=== PATIENT | female | born 1980 | race Caucasian/White ===

== ENCOUNTER → 2017-08-22 | Outpatient (CLI) | payer OTHER ==
[~2017-08-22] MED LIST: ARIP20 PO; CHLO.12%30 SSP; IBUP800T23 PO; LAMO200T PO; PENI500T PO
--- NOTE | 2017-08-22 17:12 | EKG ---
Date Performed: 08/22/2017 Time Performed: 10:21:53 PTAGE: 37 years EKG: Sinus rhythm POSSIBLE LEFT ATRIAL ENLARGEMENT ANTEROSEPTAL MYOCARDIAL INFARCTION , OF INDETERMINATE AGE ABNORMAL ECG NO PREVIOUS TRACING DOCTOR: Jos De La Rosa Interpretating Date/Time 08/22/2017 17:10:33
== END ==
LOC: HCAV 09:28
PROVIDERS: ATTEND Psychiatry & Neurology Child & Adolescent Psychiatry
DX: F31.32 Bipolar disorder, current episode depressed, moderate (principal); R94.31 Abnormal electrocardiogram [ECG] [EKG]
CPT/HCPCS: 93005